=== PATIENT | male | born 1980 | race Hispanic/Latino ===

== ENCOUNTER 2019-04-13 01:15 | Emergency (ER) | payer SELFPAY ==
[2019-04-13] MEDS ORDERED: LIDOCAINE VISCOUS 2% SOLN 15 ML UDC ONE (01:39)
[2019-04-13] MEDS ORDERED: NA CHLORIDE 0.9% 1,000 ML ONE (01:39)
[2019-04-13] MEDS ORDERED: MAGNE/ALUM HYDROXD 30 ML UCUP ONE (01:39)
[2019-04-13 02:01] LABS: Absolute Lymphocytes (CBC) 2.8 K/uL (0.7-4.9); Basophils % 0.8 % (0-1.3); Hematocrit 46.8 % (39.6-49.0); Lymphocytes % 24.5 % (15.3-44.8); MPV 7.5 fL (7.6-11.3); RBC Red Blood Cell Count 5.03 M/uL (4.33-5.43)
--- NOTE | 2019-04-13 02:05 | EDPHYS ---
Physician Documentation [facility] Name: Parker Humphries Age: 39 yrs Sex: Male : 1980 Arrival Date: 04/13/2019 Time: 01:17 Bed 13 Private MD: ED Physician Chino Ervin HPI: 04/13 06:44 This 39 yrs old Male presents to ER via Ambulatory with complaints of tw4 Indigestion -Back Pain. 06:44 The patient presents with abdominal pain. Onset: The symptoms/episode began/occurred tw4 today. The symptoms do not radiate. Associated signs and symptoms: none. The symptoms are described as burning. Modifying factors: The symptoms are alleviated by nothing, the symptoms are aggravated by nothing. Severity of pain: At its worst the pain was moderate in the emergency department the pain is unchanged. The patient has not experienced similar symptoms in the past. Historical: - Allergies: 01:32 No Known Allergies; lp1 - Home Meds: 01:32 Lisinopril Oral [Active]; Hydrochlorothiazide Oral [Active]; lp1 - PMHx: 01:32 Hypertension; lp1 - PSHx: 01:32 None; lp1 - Immunization history:: Adult Immunizations up to date. - Social history:: Smoking status: Patient uses tobacco products, smokes one pack cigarettes per day. - Ebola Screening: : No symptoms or risks identified at this time. ROS: 06:44 Back: Negative for injury and pain, MS/Extremity: Negative for injury and deformity, tw4 Skin: Negative for injury, rash, and discoloration, Neuro: Negative for headache, weakness, numbness, tingling, and seizure. 06:44 Abdomen/GI: Positive for abdominal pain, Negative for nausea and vomiting, nausea, vomiting, and diarrhea, nausea, vomiting, diarrhea, constipation. Exam: 06:54 Constitutional: This is a well developed, well nourished patient who is awake, alert, tw4 and in no acute distress. Head/Face: Normocephalic, atraumatic. Chest/axilla: Normal chest wall appearance and motion. Nontender with no deformity. No lesions are appreciated. Cardiovascular: Regular rate and rhythm with a normal S1 and S2. No gallops, murmurs, or rubs. Normal PMI, no JVD. No pulse deficits. Respiratory: Lungs have equal breath sounds bilaterally, clear to auscultation and percussion. No rales, rhonchi or wheezes noted. No increased work of breathing, no retractions or nasal flaring. Back: No spinal tenderness. No costovertebral tenderness. Full range of motion. Skin: Warm, dry with normal turgor. Normal color with no rashes, no lesions, and no evidence of cellulitis. MS/ Extremity: Pulses equal, no cyanosis. Neurovascular intact. Full, normal range of motion. Neuro: Awake and alert, GCS 15, oriented to person, place, time, and situation. Cranial nerves II-XII grossly intact. Motor strength 5/5 in all extremities. Sensory grossly intact. Cerebellar exam normal. Normal gait. 06:54 Abdomen/GI: Inspection: abdomen appears normal, Bowel sounds: normal, Palpation: moderate abdominal tenderness, in the epigastric area. Vital Signs: 01:30 BP 184 / 108; Pulse 70; Resp 18; Temp 97.9(O); Pulse Ox 98% on R/A; Weight 77.11 kg; lp1 Height 5 ft. 4 in. (162.56 cm); Pain 10/10; 02:48 BP 170 / 106; Pulse 80; Resp 18; Pulse Ox 99% on R/A; Pain 2/10; lp1 01:30 Body Mass Index 29.18 (77.11 kg, 162.56 cm) lp1 MDM: 01:27 Patient medically screened. tw4 06:54 Data reviewed: vital signs, nurses notes. Data interpreted: Pulse oximetry: tw4 Interpretation: normal. Counseling: I had a detailed discussion with the patient and/or guardian regarding: the historical points, exam findings, and any diagnostic results supporting the discharge/admit diagnosis. Medication response: GI Cocktail relieved the patient's pain. The symptoms have resolved. Response to treatment: the patient's symptoms have markedly improved after treatment, and as a result, I will discharge patient. 04/13 01:28 Order name: Basic Metabolic Panel tw4 04/13 01:28 Order name: CBC with Diff tw4 04/13 01:28 Order name: Creatinine for Radiology tw4 04/13 01:28 Order name: Hepatic Function tw4 04/13 01:28 Order name: Lipase tw4 04/13 01:28 Order name: IV Saline Lock; Complete Time: 4 04/13 01:28 Order name: Labs collected and sent; Complete Time: Administered Medications: :34 CANCELLED (Physician Discretion): Zofran 4 mg IVP once; over 2 minutes :34 CANCELLED (Physician Discretion): morphine 4 mg IVP once; RASS on ADMIN: Combtv4, Very tw4 Agttd3, Agttd2, Rstlss1, AlertClm0, Drwsy-1, Lt Sdtn-2, Mod Sdtn-3, Dp Sdtn-4, UnArsble-5 01:40 Drug: GI Cocktail without - (Maalox Suspension 30 ml, Lidocaine Liquid 2 % 15 lp1 ml) Route: PO; 02:00 Follow up: Response: No adverse reaction; Marked relief of symptoms; Pain is decreased lp1 01:48 Drug: NS 0.9% 1000 ml Route: IV; Rate: 1 bolus; Site: right antecubital; lp1 02:49 Follow up: IV Status: Completed infusion; IV Intake: 1000ml lp1 02:23 CANCELLED (No ): GI Cocktail with - (Maalox Suspension 30 ml, lp1 Lidocaine Liquid 2 % 20 ml, Phenobarbital-Belladonna 10 ml) PO once Disposition: 04/13/19 02:04 Discharged to Home. Impression: Gastritis, unspecified, without bleeding. - Condition is Stable. - Discharge Instructions: Gastritis, Adult. - Prescriptions for Carafate 1 gram Oral Tablet - take 1 tablet by ORAL route 4 times per day take on an empty stomach, beginning on waking and last dose at bedtime; 100 tablet. - Medication Reconciliation Form, Thank You Letter, Antibiotic Education, Prescription Opioid Use form. - Follow up: Private Physician; When: Upon discharge from the Emergency Department; Reason: Recheck today's complaints, Continuance of care. - Problem is new. - Symptoms have improved. Signatures: Dispatcher [employer] Elena Champion, RN RN lp1 Chino Ervin MD MD tw4 Corrections: (The following items were deleted from the chart) 01:28 Zofran 4 mg IVP once; over 2 minutes ordered. :34 01:28 morphine 4 mg IVP once; RASS on ADMIN: Combtv4, Very Agttd3, Agttd2, Rstlss1, tw4 AlertClm0, Drwsy-1, Lt Sdtn-2, Mod Sdtn-3, Dp Sdtn-4, UnArsble-5 ordered. tw4 02:23 01:36 GI Cocktail with - (Maalox 30 ml, Lidocaine 20 ml, lp1 Phenobarbital-Belladonna 10 ml) PO once ordered. tw4 02:23 01:53 GI Cocktail with - (Maalox 30 ml, Lidocaine 20 ml, lp1 Phenobarbital-Belladonna 10 ml) PO once given. lp1 02:23 02:23 GI Cocktail with - (Maalox 30 ml, Lidocaine 20 ml, lp1 Phenobarbital-Belladonna 10 ml) PO once ordered. lp1 02:50 02:04 04/13/2019 02:04 Discharged to Home. Impression: Gastritis, unspecified, without lp1 bleeding. Condition is Stable. Forms are Medication Reconciliation Form, Thank You Letter, Antibiotic Education, Prescription Opioid Use. Follow up: Private Physician; When: Upon discharge from the Emergency Department; Reason: Recheck today's complaints, Continuance of care. Problem is new. Symptoms have improved. tw4 06:54 06:44 Constitutional: This is a well developed, well nourished patient who is awake, tw4 alert, and in no acute distress. Head/Face: Normocephalic, atraumatic. Chest/axilla: Normal chest wall appearance and motion. Nontender with no deformity. No lesions are appreciated. Cardiovascular: Regular rate and rhythm with a normal S1 and S2. No gallops, murmurs, or rubs. Normal PMI, no JVD. No pulse deficits. Respiratory: Lungs have equal breath sounds bilaterally, clear to auscultation and percussion. No rales, rhonchi or wheezes noted. No increased work of breathing, no retractions or nasal flaring. MS/ Extremity: Pulses equal, no cyanosis. Neurovascular intact. Full, normal range of motion. Neuro: Awake and alert, GCS 15, oriented to person, place, time, and situation. Cranial nerves II-XII grossly intact. Motor strength 5/5 in all extremities. Sensory grossly intact. Cerebellar exam normal. Normal gait. tw4
--- NOTE | 2019-04-13 02:05 | ER ---
Nurse's Notes [facility] Name: Parker Humphries Age: 39 yrs Sex: Male : 1980 Arrival Date: 04/13/2019 Time: 01:17 Bed 13 Private MD: Diagnosis: Gastritis, unspecified, without bleeding Presentation: 04/13 01:28 Presenting complaint: Patient states: Epigastric pain radiating to back, began after lp1 eating dinner about 2130 tonight; States typically getting relief with antacids in the past, no relief tonight. Transition of care: patient was not received from another setting of care. Onset of symptoms was April 13, 2019. Risk Assessment: Do you want to hurt yourself or someone else? Patient reports no desire to harm self or others. Initial Sepsis Screen: Does the patient meet any 2 criteria? No. Patient's initial sepsis screen is negative. Does the patient have a suspected source of infection? No. Patient's initial sepsis screen is negative. 01:28 Method Of Arrival: Ambulatory lp1 01:28 Acuity: MUKESH 3 lp1 02:25 Care prior to arrival: None. lp1 Historical: - Allergies: 01:32 No Known Allergies; lp1 - Home Meds: 01:32 Lisinopril Oral [Active]; Hydrochlorothiazide Oral [Active]; lp1 - PMHx: 01:32 Hypertension; lp1 - PSHx: 01:32 None; lp1 - Immunization history:: Adult Immunizations up to date. - Social history:: Smoking status: Patient uses tobacco products, smokes one pack cigarettes per day. - Ebola Screening: : No symptoms or risks identified at this time. Screenin:33 Abuse screen: Denies threats or abuse. Denies injuries from another. Nutritional lp1 screening: No deficits noted. Tuberculosis screening: No symptoms or risk factors identified. Fall Risk None identified. Assessment: 01:35 General: Appears uncomfortable, Behavior is appropriate for age. Pain: Complains of lp1 pain in epigastric area Pain radiates to back Pain currently is 10 out of 10 on a pain scale. Quality of pain is described as. Neuro: Level of Consciousness is awake, alert, obeys commands. Cardiovascular: Patient's skin is warm and dry. Respiratory: Respiratory effort is even, unlabored. GI: Abdomen is non-distended, Reports upper abdominal pain, indigestion. : No signs and/or symptoms were reported regarding the genitourinary system. EENT: No signs and/or symptoms were reported regarding the EENT system. Derm: Skin is pink, warm \T\ dry. Musculoskeletal: No deficits noted. 02:00 Reassessment: Patient states instant relief with GI cocktail administered Patient lp1 states feeling better. Patient states symptoms have improved. 02:49 Reassessment: Patient is alert, oriented x 3, equal unlabored respirations, skin lp1 warm/dry/pink. Patient states feeling better. Patient states symptoms have improved. General: Behavior is calm. Vital Signs: 01:30 BP 184 / 108; Pulse 70; Resp 18; Temp 97.9(O); Pulse Ox 98% on R/A; Weight 77.11 kg; lp1 Height 5 ft. 4 in. (162.56 cm); Pain 10/10; 02:48 BP 170 / 106; Pulse 80; Resp 18; Pulse Ox 99% on R/A; Pain 2/10; lp1 01:30 Body Mass Index 29.18 (77.11 kg, 162.56 cm) lp1 ED Course: 01:17 Patient arrived in ED. ds1 01:27 Chino Ervin MD is Attending Physician. tw4 01:27 Elena Calderón, NELLIE is Primary Nurse. lp1 01:29 Triage completed. lp1 01:29 Arm band placed on. lp1 01:33 Patient has correct armband on for positive identification. lp1 01:40 No provider procedures requiring assistance completed. Inserted saline lock: 20 gauge lp1 in right antecubital area, using aseptic technique. Blood collected. 02:50 IV discontinued, No redness/swelling at site. Pressure dressing applied. lp1 Administered Medications: 01:34 CANCELLED (Physician Discretion): Zofran 4 mg IVP once; over 2 minutes tw4 01:34 CANCELLED (Physician Discretion): morphine 4 mg IVP once; RASS on ADMIN: Combtv4, Very tw4 Agttd3, Agttd2, Rstlss1, AlertClm0, Drwsy-1, Lt Sdtn-2, Mod Sdtn-3, Dp Sdtn-4, UnArsble-5 01:40 Drug: GI Cocktail without - (Maalox Suspension 30 ml, Lidocaine Liquid 2 % 15 lp1 ml) Route: PO; 02:00 Follow up: Response: No adverse reaction; Marked relief of symptoms; Pain is decreased lp1 01:48 Drug: NS 0.9% 1000 ml Route: IV; Rate: 1 bolus; Site: right antecubital; lp1 02:49 Follow up: IV Status: Completed infusion; IV Intake: 1000ml lp1 02:23 CANCELLED (No ): GI Cocktail with - (Maalox Suspension 30 ml, lp1 Lidocaine Liquid 2 % 20 ml, Phenobarbital-Belladonna 10 ml) PO once Intake: 02:49 IV: 1000ml; Total: 1000ml. lp1 Outcome: 02:04 Discharge ordered by . tw4 02:49 Discharged to home ambulatory, with significant other. lp1 02:49 Condition: good 02:49 Discharge instructions given to patient, Instructed on discharge instructions, follow up and referral plans. medication usage, Demonstrated understanding of instructions, follow-up care, medications, Prescriptions given X 1. 02:50 Patient left the ED. lp1 Signatures: Sharyn House ds1 Elena Calderón RN RN lp1 Chino Ervin MD MD tw4 Corrections: (The following items were deleted from the chart) 02:23 01:53 GI Cocktail with - (Maalox 30 ml, Lidocaine 20 ml, lp1 Phenobarbital-Belladonna 10 ml) PO lp1 02:23 02:21 Response: Marked relief of symptoms; Pain is decreased lp1 lp1
[2019-04-13 02:19] LABS: ALT/SGPT 27 U/L (12-78); AST/SGOT 16 U/L (15-37); Albumin 3.6 g/dL (3.4-5.0); Alkaline Phosphatase 107 U/L (45-117); BUN Blood Urea Nitrogen 14 mg/dL (7-18); Bicarbonate 30 mmol/L (21-32); Bilirubin Direct < 0.1 mg/dL (0-0.2); Bilirubin Total 0.2 mg/dL (0.2-1.0); Glucose Level 146 mg/dL (74-106); Lipase 406 U/L (73-393); Potassium 3.9 mmol/L (3.5-5.1); Protein, Total 7.1 g/dL (6.4-8.2); Sodium Level 141 mmol/L (136-145)
[2019-04-13 03:23] VITALS: TEMP 97.9
[2019-04-13 03:24] VITALS: BP 170/106; O2SAT 99
== END 2019-04-13 02:50 | disposition home or self-care (01) ==
LOC: ER 01:15
DX: K29.70 Gastritis, unspecified, without bleeding (principal); I10 Essential (primary) hypertension; F17.210 Nicotine dependence, cigarettes, uncomplicated
CPT/HCPCS: 36415; 80048; 80076; 83690; 85025; 96360; 99284; J7030

== ENCOUNTER 2020-04-08 22:42 | Inpatient (IN) | payer SELFPAY ==
[2020-04-08 23:30] LABS: Absolute Lymphocytes (CBC) 2.3 K/uL (0.7-4.9); Basophils % 0.8 % (0-1.3); Hematocrit 49.1 % (39.6-49.0); Lymphocytes % 17.4 % (15.3-44.8); MPV 7.2 fL (7.6-11.3); RBC Red Blood Cell Count 5.37 M/uL (4.33-5.43)
[2020-04-08] MEDS ORDERED: KETOROLAC 30 MG/ML INJ ONE (23:49)
[2020-04-08] MEDS ORDERED: NA CHLORIDE 0.9% 1,000 ML ONE (23:49)
[2020-04-08] MEDS ORDERED: DICYCLOMINE HCL 10 MG CAP ONE (23:49)
[2020-04-08 23:53] LABS: ALT/SGPT 28 U/L (12-78); AST/SGOT 16 U/L (15-37); Albumin 3.8 g/dL (3.4-5.0); Alkaline Phosphatase 93 U/L (45-117); BUN Blood Urea Nitrogen 16 mg/dL (7-18); Bicarbonate 31 mmol/L (21-32); Bilirubin Direct < 0.1 mg/dL (0-0.2); Bilirubin Total 0.4 mg/dL (0.2-1.0); Glucose Level 104 mg/dL (74-106); Lipase 291 U/L (73-393); Potassium 3.8 mmol/L (3.5-5.1); Protein, Total 8.1 g/dL (6.4-8.2); Sodium Level 139 mmol/L (136-145)
[2020-04-09] MEDS ORDERED: FAMOTIDINE 20 MG/2 ML VIAL IV ONE (00:40)
--- NOTE | 2020-04-09 00:45 | ER ---
Nurse's Notes [facility] Name: Parker Humphries Age: 40 yrs Sex: Male : 1980 Arrival Date: 04/08/2020 Time: 22:44 Bed 5 Private MD: Diagnosis: Abdominal tenderness;Cholecystitis;Cholelithiasis;Elevated white blood cell count Presentation: 04/08 22:51 Chief complaint: Patient states: right pain under ribs that has been there for 4-5 em days, denies N/V or fever, feels like indigestion, thinks it might be his gallbladder. Coronavirus screen: Client denies travel out of the [place] in the last 14 days. Ebola Screen: Patient negative for fever greater than or equal to 101.5 degrees Fahrenheit, and additional compatible Ebola Virus Disease symptoms Patient denies exposure to infectious person. Patient denies travel to an Ebola-affected area in the 21 days before illness onset. No symptoms or risks identified at this time. Initial Sepsis Screen: Does the patient meet any 2 criteria? No. Patient's initial sepsis screen is negative. Does the patient have a suspected source of infection? No. Patient's initial sepsis screen is negative. Risk Assessment: Do you want to hurt yourself or someone else? Patient reports no desire to harm self or others. Onset of symptoms was April 03, 2020. 22:51 Method Of Arrival: Ambulatory em 22:51 Acuity: MUKESH 3 em Historical: - Allergies: 22:55 No Known Allergies; em - Home Meds: 22:55 Hydrochlorothiazide Oral [Active]; lisinopril Oral [Active]; sertraline oral oral em [Active]; - PMHx: 22:55 Hypertension; em - PSHx: 22:55 None; em - Immunization history:: Adult Immunizations up to date. - Social history:: Smoking status: Patient reports the use of cigarette tobacco products, smokes one pack cigarettes per day. Screenin:27 Abuse screen: Denies threats or abuse. Nutritional screening: No deficits noted. ll2 Tuberculosis screening: No symptoms or risk factors identified. Fall Risk None identified. Assessment: 23:00 General: Appears in no apparent distress. Behavior is calm, cooperative, appropriate ll2 for age. Pain: Complains of pain in right upper quadrant. Neuro: Level of Consciousness is awake, alert, obeys commands, Oriented to person, place, time, situation. Cardiovascular: Patient's skin is warm and dry. Respiratory: Airway is patent Respiratory effort is even, unlabored, Respiratory pattern is regular, symmetrical. GI: Bowel sounds present X 4 quads. Abd is soft Abdomen is tender to palpation in right upper quadrant. : No signs and/or symptoms were reported regarding the genitourinary system. EENT: No signs and/or symptoms were reported regarding the EENT system. Derm: Skin is intact, is healthy with good turgor, Skin is dry, Skin is pink, warm \T\ dry. Musculoskeletal: Circulation, motion, and sensation intact. Range of motion: intact in all extremities. 04/09 00:10 Reassessment: Patient and/or family updated on plan of care and expected duration. Pain ll2 level reassessed. Patient is alert, oriented x 3, equal unlabored respirations, skin warm/dry/pink. 01:09 Reassessment: Patient and/or family updated on plan of care and expected duration. Pain ll2 level reassessed. Patient is alert, oriented x 3, equal unlabored respirations, skin warm/dry/pink. notified erd pt refused any narcotics due to prior addiction, pt states pain is improved. 01:32 Reassessment: attempt to call report, awaiting nurse availability, will call back when sg ready for pt report, pt updated on delay, stated understanding. Vital Signs: 04/08 22:47 BP 131 / 90; Pulse 85; Resp 16; Pulse Ox 99% on R/A; ll2 22:51 BP 131 / 90; Pulse 89; Resp 18; Temp 98.2; Pulse Ox 100% on R/A; Weight 72.57 kg; em Height 5 ft. 5 in. (165.10 cm); Pain 09/19; 23:46 BP 127 / 91; Pulse 85; Resp 15; Pulse Ox 95% on R/A; ll2 04/09 00:35 BP 140 / 87; Pulse 76; Resp 18; Pulse Ox 98% on R/A; ll2 01:58 BP 138 / 72; Pulse 77; Resp 18; Temp 98.2; Pulse Ox 98% on R/A; sg 04/08 22:51 Body Mass Index 26.62 (72.57 kg, 165.10 cm) em ED Course: 04/08 22:44 Patient arrived in ED. cf2 22:52 Claudette Cooper, RN is Primary Nurse. ll2 22:53 Triage completed. em 22:55 Arm band placed on. em 23:14 [facility] Fish[facility]O [facility] kb 23:14 Burt Morales MD is Attending Physician. kb 23:28 Patient has correct armband on for positive identification. Call light in reach. Side ll2 rails up X 1. Pulse ox on. NIBP on. 23:28 No provider procedures requiring assistance completed. Initial lab(s) drawn, by nd, ll2 sent to lab. Inserted saline lock: in right antecubital area, using aseptic technique. Blood collected. 04/09 00:30 CT Abd/Pelvis - IV Contrast Only In Process Unspecified. EDMS 00:43 Eddie Diggs MD is Hospitalizing Provider. [facility] 01:57 Patient admitted, IV remains in place. intact, No redness/swelling at site. sg Administered Medications: 04/08 23:43 Drug: Bentyl 20 mg Route: PO; ll2 04/09 00:35 Follow up: Response: No adverse reaction ll2 04/08 23:44 Drug: NS 0.9% 1000 ml Route: IV; Rate: 1000 ml; Site: right antecubital; ll2 04/09 00:45 Follow up: Response: No adverse reaction; IV Status: Completed infusion; IV Intake: ll2 1000ml 04/08 23:44 Drug: TORadol - Ketorolac 15 mg Route: IVP; Site: right antecubital; ll2 04/09 00:34 Follow up: Response: No adverse reaction ll2 00:34 Drug: Pepcid 20 mg Route: IVP; Site: right antecubital; rv 01:10 Follow up: Response: No adverse reaction ll2 01:25 Follow up: Response: No adverse reaction ll2 01:11 Drug: Zofran (Ondansetron) 4 mg Route: IVP; Site: right antecubital; ll2 01:25 Follow up: Response: No adverse reaction ll2 01:11 Drug: Zosyn 3.375 grams Route: IVPB; Infused Over: 60 mins; Site: right antecubital; ll2 01:12 Not Given (Patient Refused): morphine 2 mg IVP once; (PAIN>8) RASS on ADMN: Combtv4, ll2 Very Agttd3, Agttd2, Rstlss1, AlertClm0, Drwsy-1, LtSdtn-2, ModSdtn-3, DpSdtn-4, UnArsble-5 x2 Intake: 00:45 IV: 1000ml; Total: 1000ml. ll2 Outcome: 00:44 Decision to Hospitalize by Provider. stacie 01:57 Admitted to Med/surg accompanied by [facility], room 208, with chart, Report called to shaylee Ledbetter RN 01:57 Condition: stable 01:57 Instructed on the need for admit, safety practices, Demonstrated understanding of instructions, follow-up care. 02:00 Patient left the ED. Signatures: Dispatcher [employer] EDLinda Grande, RESPIRATORY THERAPY TECHNICIAN-C RESPIRATORY THERAPY TECHNICIAN-CkIsma Butler, RN RN Burt Pichardo MD MD cha Munoz, Edgar, RN RN em Jeffrey King RN Autumn Kwong 2 Claudette Cooper RN RN ll2 Corrections: (The following items were deleted from the chart) 04/08 22:58 22:51 Chief complaint: Patient states: right rib pain that has been there for 4-5 days, em denies N/V or fever, feels like indigestion em 04/09 01:19 00:35 BP 140 / 87; Pulse 76bpm; Resp 99bpm; Pulse Ox 98% RA; ll2 ll2
--- NOTE | 2020-04-09 00:45 | EDPHYS ---
Physician Documentation [facility] Name: Parker Humphries Age: 40 yrs Sex: Male : 1980 Arrival Date: 04/08/2020 Time: 22:44 Bed 5 Private MD: ED Physician Burt Morales HPI: 04/08 23:14 This 40 yrs old Male presents to ER via Ambulatory with complaints of kb Abdominal Pain. 23:14 The patient presents with abdominal pain in the right upper quadrant. Onset: The kb symptoms/episode began/occurred 4 day(s) ago. The symptoms do not radiate. Associated signs and symptoms: none. The symptoms are described as constant. Modifying factors: The symptoms are alleviated by nothing, the symptoms are aggravated by food. Severity of pain: At its worst the pain was moderate in the emergency department the pain has improved. The patient has not experienced similar symptoms in the past. The patient has not recently seen a physician. Pt reports RUQ pain that started 4 days ago. Thought it was indigestion at first, but normally that is more epigastric pain and goes away. This pain has been constant and gets worse after eating. . Historical: - Allergies: 22:55 No Known Allergies; em - Home Meds: 22:55 Hydrochlorothiazide Oral [Active]; lisinopril Oral [Active]; sertraline oral oral em [Active]; - PMHx: 22:55 Hypertension; em - PSHx: 22:55 None; em - Immunization history:: Adult Immunizations up to date. - Social history:: Smoking status: Patient reports the use of cigarette tobacco products, smokes one pack cigarettes per day. ROS: 23:14 Constitutional: Negative for fever, chills, and weight loss, Cardiovascular: Negative kb for chest pain, palpitations, and edema, Respiratory: Negative for shortness of breath, cough, wheezing, and pleuritic chest pain, Back: Negative for injury and pain, MS/Extremity: Negative for injury and deformity, Skin: Negative for injury, rash, and discoloration, Neuro: Negative for headache, weakness, numbness, tingling, and seizure. 23:14 Abdomen/GI: Positive for abdominal pain, Negative for nausea, vomiting, and diarrhea. Exam: 23:14 Constitutional: This is a well developed, well nourished patient who is awake, alert, kb and in no acute distress. Head/Face: Normocephalic, atraumatic. Chest/axilla: Normal chest wall appearance and motion. Nontender with no deformity. No lesions are appreciated. Cardiovascular: Regular rate and rhythm with a normal S1 and S2. No gallops, murmurs, or rubs. Normal PMI, no JVD. No pulse deficits. Respiratory: Lungs have equal breath sounds bilaterally, clear to auscultation and percussion. No rales, rhonchi or wheezes noted. No increased work of breathing, no retractions or nasal flaring. Skin: Warm, dry with normal turgor. Normal color with no rashes, no lesions, and no evidence of cellulitis. MS/ Extremity: Pulses equal, no cyanosis. Neurovascular intact. Full, normal range of motion. Neuro: Awake and alert, GCS 15, oriented to person, place, time, and situation. Cranial nerves II-XII grossly intact. Motor strength 5/5 in all extremities. Sensory grossly intact. Cerebellar exam normal. Normal gait. 23:14 Abdomen/GI: Inspection: abdomen appears normal, Bowel sounds: normal, in all quadrants, Palpation: soft, in all quadrants, mild abdominal tenderness, in the right upper quadrant. Vital Signs: 22:47 BP 131 / 90; Pulse 85; Resp 16; Pulse Ox 99% on R/A; ll2 22:51 BP 131 / 90; Pulse 89; Resp 18; Temp 98.2; Pulse Ox 100% on R/A; Weight 72.57 kg; em Height 5 ft. 5 in. (165.10 cm); Pain 5/10; 23:46 BP 127 / 91; Pulse 85; Resp 15; Pulse Ox 95% on R/A; ll2 04/09 00:35 BP 140 / 87; Pulse 76; Resp 18; Pulse Ox 98% on R/A; ll2 01:58 BP 138 / 72; Pulse 77; Resp 18; Temp 98.2; Pulse Ox 98% on R/A; sg 04/08 22:51 Body Mass Index 26.62 (72.57 kg, 165.10 cm) em MDM: 04/08 23:14 Patient medically screened. kb 23:14 Data reviewed: vital signs, nurses notes. Data interpreted: Pulse oximetry: on room air kb is 100 %. Interpretation: normal. 04/09 00:01 Transition of care: After a detail discussion of the patient's case, care is kb transferred to Burt Morales MD. 00:41 Differential diagnosis: cholecystitis, Cholelithiasis, diverticulitis, gastroesophageal stacie reflux disease, Mesenteric ischemia or infarction, non-specific abd pain, pancreatitis, Peptic Ulcer Disease, Peritonitis, Pyelonephritis, urinary tract infection. Test interpretation: by ED physician or midlevel provider: ECG, plain radiologic studies. Counseling: I had a detailed discussion with the patient and/or guardian regarding: the historical points, exam findings, and any diagnostic results supporting the discharge/admit diagnosis, lab results, radiology results, the need for further work-up and treatment in the hospital. 04/08 23:05 Order name: Basic Metabolic Panel; Complete Time: 00:01 kb 04/08 23:05 Order name: CBC with Diff; Complete Time: 23:44 kb 04/08 23:05 Order name: Hepatic Function; Complete Time: 00:01 kb 04/08 23:05 Order name: Lipase; Complete Time: 00:01 kb 04/08 23:20 Order name: CT Abd/Pelvis - IV Contrast Only kb 04/08 23:05 Order name: IV Saline Lock; Complete Time: 23:44 kb 04/09 00:09 Order name: EKG; Complete Time: 00:09 stacie 04/08 23:05 Order name: Labs collected and sent; Complete Time: 23:44 kb 04/09 00:09 Order name: EKG - Nurse/Tech; Complete Time: 00:34 stacie Administered Medications: 04/08 23:43 Drug: Bentyl 20 mg Route: PO; ll2 04/09 00:35 Follow up: Response: No adverse reaction 2 04/08 23:44 Drug: NS 0.9% 1000 ml Route: IV; Rate: 1000 ml; Site: right antecubital; ll2 04/09 00:45 Follow up: Response: No adverse reaction; IV Status: Completed infusion; IV Intake: ll2 1000ml 04/08 23:44 Drug: TORadol - Ketorolac 15 mg Route: IVP; Site: right antecubital; ll2 04/09 00:34 Follow up: Response: No adverse reaction ll2 00:34 Drug: Pepcid 20 mg Route: IVP; Site: right antecubital; rv 01:10 Follow up: Response: No adverse reaction ll2 01:25 Follow up: Response: No adverse reaction ll2 01:11 Drug: Zofran (Ondansetron) 4 mg Route: IVP; Site: right antecubital; ll2 01:25 Follow up: Response: No adverse reaction ll2 01:11 Drug: Zosyn 3.375 grams Route: IVPB; Infused Over: 60 mins; Site: right antecubital; ll2 01:12 Not Given (Patient Refused): morphine 2 mg IVP once; (PAIN>8) RASS on ADMN: Combtv4, ll2 Very Agttd3, Agttd2, Rstlss1, AlertClm0, Drwsy-1, LtSdtn-2, ModSdtn-3, DpSdtn-4, UnArsble-5 x2 Disposition: 00:42 Co-signature as Attending Physician, Burt Morales MD I agree with the assessment and [facility] plan of care. Disposition: 04/09/20 00:44 Hospitalization ordered by Eddie Diggs for Observation. Preliminary diagnosis are Abdominal tenderness, Cholecystitis, Cholelithiasis, Elevated white blood cell count. - Bed requested for Telemetry/MedSurg (observation). - Status is Observation. sg - Condition is Stable. - Problem is new. - Symptoms have improved. Signatures: Dispatcher [employer] Linda Victor FNP-C FNP-Debbie Matias RN RN mw Gay, Steven, RN RN sg Anderson, Corey, MD MD cha Munoz, Edgar, RN Jeffrey Addison, RN Claudette Coreas, RN RN ll2 Corrections: (The following items were deleted from the chart) 00:53 00:44 Hospitalization Ordered by Eddie Diggs MD for Observation. Preliminary [facility] diagnosis is Abdominal tenderness; Cholecystitis; Cholelithiasis. Bed requested for Telemetry/MedSurg (observation). Status is Observation. Condition is Stable. Problem is new. Symptoms have improved. [facility] 00:57 00:53 04/09/2020 00:44 Hospitalization Ordered by Eddie Diggs MD for Observation. Preliminary diagnosis is Abdominal tenderness; Cholecystitis; Cholelithiasis; Elevated white blood cell count. Bed requested for Telemetry/MedSurg (observation). Status is Observation. Condition is Stable. Problem is new. Symptoms have improved. [facility] 02:00 00:57 04/09/2020 00:44 Hospitalization Ordered by Eddie Diggs MD for Observation. sg Preliminary diagnosis is Abdominal tenderness; Cholecystitis; Cholelithiasis; Elevated white blood cell count. Bed requested for Telemetry/MedSurg (observation). Status is Observation. Condition is Stable. Problem is new. Symptoms have improved. mw
[2020-04-09] MEDS ORDERED: ONDANSETRON 4 MG/2 ML VIAL ONE (01:21)
[2020-04-09] MEDS ORDERED: PIPER/TAZO/NS 3.375gm 3.375 GM/100 ML BAG ONE (01:22)
[2020-04-09] MEDS ORDERED: MORPHINE 4 MG/ML SYR IV PRN (02:14)
[2020-04-09] MEDS ORDERED: ACETAMINOPHEN 325 MG TABLET PO PRN (02:14)
[2020-04-09] MEDS ORDERED: ONDANSETRON 4 MG/2 ML VIAL IV PRN (02:14)
[2020-04-09 02:41] VITALS: BMI 27.4
[2020-04-09] MEDS: D5 0.45 NS 1,000 ML IV SCH ×3 (02:44→17:48)
[2020-04-09] MEDS ORDERED: KETOROLAC 30 MG/ML INJ IV PRN (03:04)
[2020-04-09] MEDS: FAMOTIDINE 20 MG/2 ML VIAL IV SCH ×2 (10:56→21:09)
[2020-04-09] MEDS: PIPER/TAZO/NS 3.375gm 3.375 GM/100 ML BAG IVPB SCH ×2 (10:56→17:49)
--- NOTE | 2020-04-09 14:05 | HP ---
Date of Admission: 04/09/2020 Reason For Services: Epigastric right upper quadrant pain, cholelithiasis, acute cholecystitis. History Of Present Illness: This is a case of a 40-year-old patient comes to us with epigastric righ t upper quadrant pain radiating to the back for about 4 days duration. I have to mention that in the last few days due to "Thanks Giving Day," the patient has been eating anything more than usual, but he believe everything has started after he ate a tater tot casserole with cheese. Past Medical History: Include hypertension. Medications: He use hydrochlorothiazide. Past Surgical History: None. Allergies: NONE. Social History: The patient has an occasional use of alcohol. The patient was counseled about smoki ng cessation. He does not drink alcohol. Review of Systems: Denies any chills, any fevers, any shortness of breath, any chest pain, any melena, any dysuria, laney turia, or hematochezia. Denies any jaundice. 10 points otherwise unremarkable. Physical Examination: General: Patient is awake and alert. Pupils are equal and reactive, anicteric. Neck: Supple. Chest: Clear. Heart: S1, S2. Abdomen: Epigastric right upper quadrant tenderness with Negro sign positive. Extremities: Good capillary refill. Neuro: Cranial nerves 2 through 12 grossly within normal limits. Laboratory Data: WBC count 13, hemoglobin of 16, and total bilirubin of 0.4. CAT scan of the abdome n and pelvis, official results still pending, but preliminary result shows cholecystitis and cholelit hiasis. Assessment: 40-year-old patient with symptomatic cholelithiasis, cholecystitis. Patient will have f ew options, which antibiotics modify his diet versus laparoscopic possible open cholecystectomy. We explained to him the surgical options, benefits and risks, which include, but not limited to infectio n, bleeding, damage to adjacent structures, anesthesia complication, choledocholithiasis, bile leak, pancreatitis, myocardial infarction, and even . He also understands this may not relieve the sy mptoms. He might need more than one surgical intervention. He wants some time to think about it. Son agarwal is going to think to see if this afternoon is going to give a trial of diet or not. If he gives a trial of diet and he fails, he might just allow me to do the surgery tomorrow. If not, he is going t o do this electively. We are going to respect his wishes and we will follow the patient's decision. ADAMS Voice ID: [id number]
--- NOTE | 2020-04-09 19:28 | RAD REPORT ---
EXAM DESCRIPTION: US - Abdomen Exam Limited - 04/09/2020 7:04 pm CLINICAL HISTORY: gb Right upper quadrant pain. COMPARISON: No comparisons FINDINGS: The gallbladder demonstrates gall sludge and stones. Gallbladder wall appears mildly thick ened measuring 6 mm. The common bile duct is normal measuring 4 mm. The liver demonstrates no findings of intrahepatic biliary dilatation. IMPRESSION: Gallbladder stones and sludge with mildly thickened gallbladder wall. Early acute juan antonio cystitis is a possibility.
[2020-04-10] MEDS: PIPER/TAZO/NS 3.375gm 3.375 GM/100 ML BAG IVPB SCH ×2 (00:08→08:19)
[2020-04-10] MEDS: D5 0.45 NS 1,000 ML IV SCH (02:14)
[2020-04-10 06:04] LABS: Absolute Lymphocytes (CBC) 1.4 K/uL (0.7-4.9); Basophils % 0.5 % (0-1.3); Hematocrit 46.5 % (39.6-49.0); Lymphocytes % 13.5 % (15.3-44.8); MPV 7.2 fL (7.6-11.3); RBC Red Blood Cell Count 5.01 M/uL (4.33-5.43)
[2020-04-10 06:19] LABS: BUN Blood Urea Nitrogen 9 mg/dL (7-18); Bicarbonate 29 mmol/L (21-32); Glucose Level 104 mg/dL (74-106); Sodium Level 139 mmol/L (136-145)
[2020-04-10 06:20] LABS: ALT/SGPT 19 U/L (12-78); AST/SGOT 14 U/L (15-37); Albumin 3.1 g/dL (3.4-5.0); Alkaline Phosphatase 81 U/L (45-117); Bilirubin Direct < 0.1 mg/dL (0-0.2); Bilirubin Total 0.6 mg/dL (0.2-1.0); Lipase 256 U/L (73-393); Protein, Total 6.5 g/dL (6.4-8.2)
[2020-04-10] MEDS: FAMOTIDINE 20 MG/2 ML VIAL IV SCH (08:26)
[2020-04-10] MEDS ORDERED: Ringers Lactate 1,000 ML IV ONE (09:40)
[2020-04-10] MEDS ORDERED: ROCURONIUM 50 MG/5 ML VIAL IV ONE (10:17)
[2020-04-10] MEDS ORDERED: FENTANYL CITR 250 MCG/5 ML ONE (10:17)
[2020-04-10] MEDS ORDERED: MIDAZOLAM HCL 2 MG/2 ML INJ ONE (10:17)
[2020-04-10] MEDS ORDERED: propofoL 200 MG/20 ML VIAL IV ONE (10:17)
[2020-04-10] MEDS ORDERED: NEOSTIGMINE 1 MG/ML -5 ML ONE (10:23)
[2020-04-10] MEDS ORDERED: GLYCOPYRROLATE 0.2 MG/ML SYR ONE (10:23)
[2020-04-10] MEDS ORDERED: MORPHINE 2 MG/ML SYR IV PRN (11:20)
[2020-04-10] MEDS ORDERED: HYDROCODONE/APAP 5/325 MG TAB PO PRN (11:20)
--- NOTE | 2020-04-10 11:27 | P.BOP ---
Preoperative diagnosis: acute cholecystitis, symptomatic cholelithiasis Postoperative diagnosis: same Primary procedure: Laparoscopic cholecystectomy Estimated blood loss: <10cc Specimen: gb Findings: as above Anesthesia: General Complications: None Transferred to: Recovery Room Condition: Good
[2020-04-10 12:05] VITALS: TEMP 97.7; O2SAT 94
[2020-04-10] MEDS ORDERED: KETOROLAC 30 MG/ML INJ ONE (12:08)
--- NOTE | 2020-04-10 13:21 | DS ---
Diagnosis: Acute cholecystitis, symptomatic cholelithiasis. Disposition: Home. Activity: As tolerated, no heavy lifting. Plan: Follow up in my office in 1 week. Call for appointment at [phone]. Medications: Include Tylenol No.3 q.4 hours p.r.n. pain and Bactrim DS p.o. b.i.d. He can be discharged home if he tolerates diet this afternoon. NURIS/KIERSTEN Voice ID: [id number] Report ID: [id number]
--- NOTE | 2020-04-10 13:21 | OP ---
Date of Procedure: 04/10/2020 Surgeon: Eddie Diggs MD Diagnoses: Acute cholecystitis, symptomatic cholelithiasis. Procedure: Laparoscopic cholecystectomy. Anesthesia: General plus local. Findings: Acute cholecystitis. Indications: This is the case of a 40-year-old patient, comes to us with intractable right upper lorena drant abdominal pain. He decided today to have surgery done after a trial of diet did not sit okay o n him. Benefits, alternatives, and risks of laparoscopic possible open cholecystectomy were fully ex plained, which include, but not limited to infection, bleeding, damage to adjacent structures, anesth esia complication, SC, and even . He also understands this may not relieve any symptoms. He mi ght need more than one surgical intervention. He understood, signed a consent. Procedure In Detail: The patient was brought to the operating room and placed in supine position. A nesthesia was done without complication. Abdominal area was prepped and draped in sterile fashion. Marcaine 0.5% was injected for local anesthetic followed by sharp incision of the skin in the infraum bilical region. Incision was carried down to fascia, which was opened under direct vision. Peritone um was encountered, opened under direct vision. Vicryl #1 was placed inside the fascia. Jory troc ar was carefully introduced. Pneumoperitoneum was obtained. I proceeded to place 3 more trocars, 5 mm each one of them, 1 in the epigastric area, 2 in the right upper quadrant using same technique, wh ich consisted of local anesthetic, sharp incision of the skin and introduction of the trocars under d irect vision. This allowed me to visualize the area of the gallbladder, looked very distended, so in order for us to relieve that distention to be able to grab this gallbladder, we put an Endo needle u nder direct visualization and aspirated the gallbladder. A grasper was placed in the area of the ins ertion point. Needle was removed under direct visualization of the abdomen. Another grasper was crystal samson into the infundibulum retracting the gallbladder in the inferolateral fashion exposing the triang le of Calot obtaining critical view. Cystic duct and cystic artery were clearly isolated freed circu mferentially and a connection between those and the gallbladder was clearly identified. The same was done with the cystic artery. No bile leak. No bleeding after putting the 3 clips proximal, 1 clip distal, ligation in middle. A small little branch of the cystic artery was also ligated. Hepatic ar teries and common bile duct were protected at all times. At that moment, I proceeded to irrigate the area, inspect the area. No bleeding. No bile leak. We removed the instruments and trocars under d irect visualization. Deflated pneumoperitoneum. Closed the fascia with #1 Vicryl, irrigated the sub cutaneous tissue and closed that with 3-0 chromic and skin with lashell. Sponge count and instrument counts were correct. The patient tolerated the procedure well. The patient was sent to recovery in stable condition. NURIS/KIERSTEN Voice ID: [id number] Report ID: [id number]
[2020-04-10] MEDS ORDERED: AMLODIPINE 10 MG TAB PO SCH (14:19)
[2020-04-10 15:09] VITALS: BP 133/77
--- NOTE | 2020-04-11 11:23 | RAD REPORT ---
EXAM DESCRIPTION: CT ABDOMEN AND PELVIS WITH CONTRAST. CLINICAL HISTORY: Right inferior rib pain for 4 to 5 days. COMPARISON: None. TECHNIQUE: Axial CT imaging of the abdomen and pelvis performed with intravenous contrast. Reformatt ed coronal and sagittal images reviewed. A dose reduction technique was utilized with automated exposure control according to patient size. FINDINGS: Clear lung bases. Heart is normal in size. The liver is normal in size and contour. There is mild geographic decreased attenuation due to fatt y infiltration. There is no liver mass. No biliary dilatation. Gallbladder contains a few nonca lcified filling defects consistent with stones. There is mild gallbladder wall thickening. There is a solitary enlarged carlos hepatis node, 1.4 x 1.1 x 1.4 cm. Normal spleen, pancreas, adrenal gla nds, and kidneys. Aorta and inferior vena cava are normal caliber. Mild aortic atherosclerosis. No retroperitoneal lymphadenopathy. Mesenteric vessels appear well opacified. Unremarkable stomach. Normal small bowel loops. Normal appearing retrocecal appendix in the right lower quadrant. Unremarkable colon. No ascites, free air, or mesenteric adenopathy. Tiny fat-c ontaining umbilical hernia. Normal bladder. The prostate is 5.2 x 4.0 x 5.0 cm with dystrophic calcifications. No pelvic free fluid or lymphadenopathy. Small fat-containing bilateral inguinal hernias. There is prominent sp ermatic cord fat bilaterally. Mild lower thoracic and lumbosacral spondylosis. Mild L4-5 diffuse disc bulge. Motion artifact limits evaluation of the inferior ribs. Bony pelvis and hips appear n ormal. There is a trace right and left hydrocele. IMPRESSION: 1. Cholelithiasis with mild gallbladder wall thickening suggests acute cholecystitis. Mild associated carlos hepatis lymphadenopathy. No biliary dilatation. 2. Mild geographic fatty liver infiltration. 3. Prostatomegaly. 4. Trace bilateral hydroceles. Electronically signed by: Silvia Mcconnell DO 04/09/2020 12:45 AM KEY WORKER Due to temporary technical issues with the PACS/Fluency reporting system, reports are being signed by the in house radiologist without review as a courtesy to ensure prompt reporting. The interpreting r adiologist is fully responsible for the content of the report.
[2020-04-11] MEDS ORDERED: SERTRALINE HCL 50 MG TAB PO SCH (14:20)
[2020-04-11] MEDS ORDERED: lisinopriL 20 MG TAB PO SCH (14:20)
[2020-04-11] MEDS ORDERED: hydroCHLOROthiazide 12.5 MG CAP PO SCH (14:20)
== END 2020-04-10 16:30 | disposition home or self-care (01) | DRG 419 ==
LOC: ER 22:42 → ERHOLD 04-09 00:46 → OBSVTOIN 04-09 00:46 → 2ND 04-09 01:58
PROVIDERS: ADMIT Surgery; ATTEND Surgery
PROC: 0FT44ZZ Resection of Gallbladder, Percutaneous Endoscopic Approach (ICD-10-PCS; principal; 2020-04-10 10:00)
DX: K80.00 Calculus of gallbladder with acute cholecystitis without obstruction (principal); I10 Essential (primary) hypertension; F17.210 Nicotine dependence, cigarettes, uncomplicated; Z79.899 Other long term (current) drug therapy; Z20.828 Contact with and (suspected) exposure to other viral communicable diseases
CPT/HCPCS: 36415; 74177; 76705; 80048; 80076; 83690; 85025; 88304; 93005; 94010; 96361; 96374; 96375; 99285; J2250; J2405; J2543; J2704; J2710; J3010; J7030; J7120; J7799; Q9967; U0003